=== PATIENT | male | born 1980 | race Caucasian/White ===

== ENCOUNTER → 2020-04-27 | Day surgery (SDC) | payer MEDICAID ==
[2020-04-25 13:27] LABS: BASOPHILS % (AUTO) 0.7 % (0.0-2.0); EOSINOPHILS % (AUTO) 2.4 % (1.0-6.0); HEMATOCRIT 46.9 % (41-53); LYMPHOCYTES # (AUTO) 3.5 K/uL (1.0-4.8); LYMPHOCYTES % (AUTO) 35.3 % (22.0-44.0); MEAN CORPUSCULAR HEMOGLOBIN 31.1 pg (26.0-34.0); MEAN CORPUSCULAR HGB CONC 34.1 G/dL (31.0-37.0); MEAN CORPUSCULAR VOLUME 91 fL (80-100); MONOCYTES # (AUTO) 0.9 K/uL (0.1-1.0); NEUTROPHILS # (AUTO) 5.2 K/uL (1.8-7.7); NEUTROPHILS % (AUTO) 52.6 % (40.0-70.0); PLATELET COUNT (AUTO) 308 K/uL (150-450); RED BLOOD CELL COUNT(AUTO) 5.12 MIL/uL (4.50-5.90); RED CELL DISTRIBUTION WIDTH 13.3 % (11.5-14.5)
[2020-04-25 14:46] LABS: COVID AG,FIA SOURCE NASOPHARYNGEAL
[~2020-04-27] VITALS: Ht 172.7 cm; Wt 94.1 kg
[~2020-04-27] MED LIST: ACETAMINOPHEN 1000 MG/ISO-OSM 100 ML IV ONE; ACETAMINOPHEN 500 MG TABLET PO PRN; BUPIVACAINE HCL/PF 0.5% 30 ML VIAL ONE; CeFAZolin 2 GM/DEXTROSE 50 ML IV ONE; CeFAZolin 2 GM/DEXTROSE 50 ML IV SCH; DEXAMETHASONE SOD PHOS 4 MG/ML VIAL IVP ONE; FentaNYL CITRATE-PF 100 MCG/2 ML VIAL IVP ONE; FentaNYL CITRATE-PF 100 MCG/2 ML VIAL IVP PRN; HYDROCODONE/ACETAMINOPHEN 5-325 MG TABLET PO PRN; HYDROmorphone 2 MG/ML SYRINGE IVP PRN; IBUPROFEN 800 MG TABLET PO PRN; KETOROLAC TROMETHAMINE 60 MG/2 ML VIAL IM ONE; LIDOCAINE 2%/EPI 1:200,000/PF 20 ML VIAL ONE; LIDOCAINE/PF 2% 5 ML VIAL IM ONE; MEPERIDINE-PF 25 MG/ML VIAL IVP PRN; MIDAZOLAM HCL 2 MG/2 ML VIAL IVP ONE; MORPHINE SULFATE 2 MG/ML SYRINGE IVP PRN; MORPHINE SULFATE/PF 0.5 MG/ML 10 ML AMP IVP ONE; ONDANSETRON HCL 4 MG/2 ML VIAL IVP ONE; ONDANSETRON HCL 4 MG/2 ML VIAL IVP PRN; OXYGEN THERAPY IH SCH; PROPOFOL 1% 20 ML VIAL IVP ONE; RINGERS SOLUTION,LACTATED 1,000 ML IV ONE; ROCURONIUM BROMIDE 10 MG/ML 5 ML VIAL IVP ONE; SUCCINYLCHOLINE CHLORIDE 20 MG/ML 10 ML VIAL IVP ONE; SUGAMMADEX SODIUM 200 MG/2 ML VIAL IVP ONE
== END | disposition home or self-care (01) ==
LOC: SURGERY 07:00
PROVIDERS: ATTEND Surgery
DX: K42.0 Umbilical hernia with obstruction, without gangrene (principal); K40.30 Unilateral inguinal hernia, with obstruction, without gangrene, not specified as recurrent; Z79.899 Other long term (current) drug therapy; Z98.890 Other specified postprocedural states
CPT/HCPCS: 36415; 49507; 49587; 54640; 85025; 87426; 88302; C1781; C9803; J0131; J0330; J0690 ×2; J1100; J1885; J2250; J2274; J2405; J2704; J3010; J3490 ×3; J7120

== ENCOUNTER 2022-12-16 04:18 | Emergency (ER) | payer SELFPAY ==
[~2022-12-16] VITALS: Ht 172.7 cm; Wt 113.6 kg
[2022-12-16 04:19] VITALS: TEMP 98.3
[2022-12-16 05:11] LABS: BASOPHILS % (AUTO) 1.1 % (0.0-2.0); HEMATOCRIT 46.8 % (41-53); HEMOGLOBIN 15.5 g/dL (13.5-17.5); LYMPHOCYTES # (AUTO) 3.7 K/uL (1.0-4.8); LYMPHOCYTES % (AUTO) 37.2 % (22.0-44.0); MEAN CORPUSCULAR HEMOGLOBIN 30.8 pg (26.0-34.0); MEAN CORPUSCULAR HGB CONC 33.1 G/dL (31.0-37.0); MEAN CORPUSCULAR VOLUME 93 fL (80-100); MONOCYTES % (AUTO) 10.2 % (2.0-9.0); NEUTROPHILS % (AUTO) 50.5 % (40.0-70.0); PLATELET COUNT (AUTO) 294 K/uL (150-450); RED BLOOD CELL COUNT(AUTO) 5.03 MIL/uL (4.50-5.90); RED CELL DISTRIBUTION WIDTH 13.6 % (11.5-14.5)
[2022-12-16 05:24] LABS: PROTHROMBIN TIME 10.3 SEC (9.4-11.6)
[2022-12-16 05:26] LABS: ANION GAP 12 mmol/L (8-16); CALCIUM, TOTAL 9.2 mg/dL (8.8-10.5); CARBON DIOXIDE 25 mmol/L (22-29); CHLORIDE 102 mmol/L (98-107); CREATININE 0.96 mg/dL (0.60-1.30); GLOMERULAR FILTR. RATE CALC > 60 mL/min (>60); GLUCOSE,RANDOM 130 mg/dL (70-110); POTASSIUM 3.5 mmol/L (3.5-5.1); SODIUM SERUM 139 mmol/L (136-145)
[2022-12-16] MEDS ORDERED: IBUP-1492 PO (05:38)
[2022-12-16 05:41] LABS: B-TYPE NATRIURETIC PEPTIDE < 5 pg/mL (0-100)
[2022-12-16] MEDS ORDERED: KETOROLAC TROMETHAMINE 30 MG/ML VIAL IVP ONE (05:45)
[2022-12-16 05:50] LABS: ALANINE AMINOTRANSFERASE 51 U/L (12-78); ALKALINE PHOSPHATASE 101 U/L (46-116); ASPARTATE AMINOTRANSFERASE 23 U/L (15-37); BILIRUBIN,TOTAL 0.8 mg/dL (0.1-1.0); CREATINE KINASE, TOTAL ONLY 590 U/L (39-308); TOTAL PROTEIN, SERUM 7.8 g/dL (6.4-8.2)
[2022-12-16 05:56] VITALS: BP 157/112; PULSE 77; RESP 16
== END 2022-12-16 06:19 | disposition still patient (30) ==
LOC: EMS 04:21
DX: S20.219A Contusion of unspecified front wall of thorax, initial encounter (principal); F17.210 Nicotine dependence, cigarettes, uncomplicated; F12.90 Cannabis use, unspecified, uncomplicated; X58.XXXA Exposure to other specified factors, initial encounter; Y93.89 Activity, other specified; Y92.89 Other specified places as the place of occurrence of the external cause; Y99.8 Other external cause status
CPT/HCPCS: 99285; 96374; 71045; 80053; 82550; 83880; 84484; 85025; 85610; 85730; 93005; J1885